=== PATIENT | male | born 1990 | race Caucasian/White ===

== ENCOUNTER 2021-02-13 17:43 | Emergency (ER) | payer BC, SELFPAY ==
--- NOTE | 2021-02-13 18:19 | RAD REPORT ---
EXAM DESCRIPTION: RAD - Chest Single View - 02/13/2021 6:10 pm CLINICAL HISTORY: dizziness Chest pain. COMPARISON: No comparisons FINDINGS: Portable technique limits examination quality. The lungs are grossly clear. The heart is normal in size. No displaced fractures. IMPRESSION: No acute intrathoracic process suspected.
[2021-02-13] MEDS ORDERED: FAMOTIDINE 20 MG/2 ML VIAL IV ONE (18:31)
[2021-02-13] MEDS ORDERED: NA CHLORIDE 0.9% 1,000 ML ONE (18:31)
[2021-02-13] MEDS ORDERED: MECLIZINE HCL 12.5 MG TAB ONE (18:31)
[2021-02-13] MEDS ORDERED: ONDANSETRON 4 MG/2 ML VIAL ONE (18:32)
--- NOTE | 2021-02-13 18:46 | RAD REPORT ---
EXAM DESCRIPTION: CT - Head Brain Wo Cont - 02/13/2021 6:22 pm CLINICAL HISTORY: HEADACHE Headache, drowsiness COMPARISON: No comparisons TECHNIQUE: All CT scans are performed using dose optimization technique as appropriate and may inclu de automated exposure control or mA/KV adjustment according to patient size. FINDINGS: No intracranial hemorrhage, hydrocephalus or extra-axial fluid collection.3 cm left tempor al arachnoid cyst.No areas of brain edema or evidence of midline shift. The paranasal sinuses and mastoids are clear. The calvarium is intact. IMPRESSION: No acute intracranial abnormality.
[2021-02-13 18:47] LABS: Protime INR 1.12
[2021-02-13 18:49] LABS: Absolute Lymphocytes (CBC) 2.1 K/uL (0.7-4.9); Basophils % 0.2 % (0-1.3); Hematocrit 44.7 % (39.6-49.0); Lymphocytes % 18.6 % (15.3-44.8); MPV 7.4 fL (7.6-11.3); RBC Red Blood Cell Count 5.25 M/uL (4.33-5.43)
[2021-02-13 18:56] LABS: ALT/SGPT 44 U/L (12-78); AST/SGOT 21 U/L (15-37); Albumin 4.5 g/dL (3.4-5.0); Alkaline Phosphatase 59 U/L (45-117); BUN Blood Urea Nitrogen 15 mg/dL (7-18); Bicarbonate 23 mmol/L (21-32); Bilirubin Direct 0.2 mg/dL (0-0.2); Bilirubin Total 0.7 mg/dL (0.2-1.0); Glucose Level 98 mg/dL (74-106); Potassium 3.4 mmol/L (3.5-5.1); Protein, Total 8.2 g/dL (6.4-8.2); Sodium Level 141 mmol/L (136-145); Troponin (Emerg Dept Use Only) < 0.02 ng/mL (0.0-0.045)
--- NOTE | 2021-02-13 19:50 | EDPHYS ---
Physician Documentation [facility] Name: Vargas Payne Age: 30 yrs Sex: Male : 1990 Arrival Date: 02/13/2021 Time: 17:46 Bed 16 Private MD: ED Physician Ag Martinez HPI: 02/13 18:00 This 30 yrs old Male presents to ER via EMS with complaints of Dizziness. cp 18:00 The patient presents with dizziness, feeling faint, generalized weakness. Onset: The cp symptoms/episode began/occurred today. 18:00 Context: occurred at work, just prior to the episode the patient experienced no cp apparent symptoms. Associated signs and symptoms: Pertinent negatives: abdominal pain, blurred vision, chest pain, focal weakness, headache, palpitations, syncope. Severity of symptoms: in the emergency department the symptoms have improved markedly. Patient's baseline: Neuro: alert and fully oriented, Motor: no deficits, Ambulation: walks without assistance, Speech: normal. Historical: - PMHx: 17:47 Diabetes mellitus; es2 - Immunization history:: Adult Immunizations Client reports receiving the 2nd dose of the Covid vaccine. - Social history:: Smoking status: Patient denies any tobacco usage or history of. ROS: 18:00 Constitutional: Negative for body aches, chills, fever. cp 18:00 Eyes: Negative for injury, pain, redness, and discharge. cp 18:00 ENT: Negative for ear pain, sore throat, difficulty swallowing, difficulty handling secretions. 18:00 Cardiovascular: Negative for chest pain, palpitations. 18:00 Respiratory: Negative for cough, shortness of breath, wheezing. 18:00 Abdomen/GI: Positive for nausea and vomiting, Negative for abdominal pain, diarrhea, constipation. 18:00 Neuro: Positive for dizziness, Negative for altered mental status, headache, numbness, syncope, weakness. 18:00 All other systems are negative. Exam: 18:00 ECG was reviewed by the Attending Physician. cp 18:05 Constitutional: The patient appears in no acute distress, alert, awake, cp non-diaphoretic, non-toxic, well developed, well nourished. 18:05 Head/Face: Normocephalic, atraumatic. cp 18:05 Eyes: Periorbital structures: appear normal, Pupils: equal, round, and reactive to light and accomodation, Extraocular movements: intact throughout, Conjunctiva: normal, no exudate, no injection, Sclera: no appreciated abnormality, Lids and lashes: appear normal, bilaterally. 18:05 ENT: External ear(s): are unremarkable, Ear canal(s): are normal, clear, TM's: dullness, bilaterally, Nose: is normal, Mouth: Lips: moist, Oral mucosa: pink and intact, moist, Posterior pharynx: Airway: no evidence of obstruction, patent, swelling, is not appreciated, erythema, is not appreciated, exudate, is not appreciated. 18:05 Neck: ROM/movement: is normal, is supple, without pain, no range of motions limitations, no nuchal rigidity. 18:05 Chest/axilla: Inspection: normal, Palpation: is normal, no crepitus, no tenderness. 18:05 Cardiovascular: Rate: normal, Rhythm: regular, Heart sounds: murmur, not appreciated. 18:05 Respiratory: the patient does not display signs of respiratory distress, Respirations: normal, no use of accessory muscles, no retractions, labored breathing, is not present, Breath sounds: are clear throughout, no decreased breath sounds. 18:05 Abdomen/GI: Inspection: abdomen appears normal, Palpation: abdomen is soft and non-tender, in all quadrants. 18:05 Neuro: Orientation: to person, place \T\ time. Mentation: is normal, Cerebellar function: is grossly normal, Motor: moves all fours, strength is normal, Sensation: is normal. Vital Signs: 17:46 BP 113 / 70; Pulse 66; Resp 17; Temp 97.5; Pulse Ox 100% on R/A; es2 MDM: 17:53 Patient medically screened. cp 18:00 Differential diagnosis: cardiac arrhythmia, hypovolemia, idiopathic dizziness, vertigo. cp 19:48 Data reviewed: vital signs, nurses notes, lab test result(s), EKG, radiologic studies, cp CT scan, plain films. 19:48 Test interpretation: by ED physician or midlevel provider: ECG, plain radiologic cp studies. Counseling: I had a detailed discussion with the patient and/or guardian regarding: the historical points, exam findings, and any diagnostic results supporting the discharge/admit diagnosis, lab results, radiology results, to return to the emergency department if symptoms worsen or persist or if there are any questions or concerns that arise at home. Response to treatment: the patient's symptoms have markedly improved after treatment, patient is well hydrated. VSS. Patient reports symptoms markedly improved. Will discharge to home for continued monitoring. 02/13 17:52 Order name: Basic Metabolic Panel; Complete Time: 19:00 cp 02/13 19:00 Interpretation: Normal except: K 3.4; CL 109. cp 02/13 17:52 Order name: CBC with Diff; Complete Time: 18:57 cp 02/13 18:57 Interpretation: Normal except: WBC 11.20; MPV 7.4; NICOLE% 74.7; NEUT A 8.4. cp 02/13 17:52 Order name: LFT's; Complete Time: 19:00 cp 02/13 19:00 Interpretation: Normal except: GLOB 3.7. cp 02/13 17:52 Order name: Magnesium; Complete Time: 19:00 cp 02/13 17:52 Order name: PT-INR; Complete Time: 18:57 cp 02/13 19:00 Interpretation: Abnormal: PT 12.9. cp 02/13 17:52 Order name: Troponin (emerg Dept Use Only); Complete Time: 19:00 cp 02/13 17:52 Order name: XRAY Chest (1 view); Complete Time: 18:57 cp 02/13 17:52 Order name: EKG; Complete Time: 17:53 cp 02/13 17:52 Order name: Cardiac monitoring; Complete Time: 18:18 cp 02/13 18:00 Order name: CT Head Brain wo Cont; Complete Time: 18:57 cp 02/13 17:52 Order name: EKG - Nurse/Tech; Complete Time: 18:03 cp 02/13 17:52 Order name: IV Saline Lock; Complete Time: 18:18 cp 02/13 17:52 Order name: Labs collected and sent; Complete Time: 18:18 cp 02/13 17:52 Order name: O2 Per Protocol; Complete Time: 18:59 cp 02/13 17:52 Order name: O2 Sat Monitoring; Complete Time: 18:59 cp EC:00 Rate is 55 beats/min. Rhythm is regular. SD interval is normal. QRS interval is normal. cp QT interval is normal. T waves are Inverted in lead aVR. Interpreted by me. Reviewed by me. Administered Medications: 18:17 Drug: Meclizine 25 mg Route: PO; es2 18:33 Follow up: Response: No adverse reaction es2 18:17 Drug: Zofran (Ondansetron) 4 mg Route: IVP; Site: right antecubital; es2 18:33 Follow up: Response: No adverse reaction es2 18:17 Drug: Pepcid (famotidine) 20 mg Route: IVP; Site: right antecubital; es2 18:33 Follow up: Response: No adverse reaction es2 18:33 Drug: NS 0.9% 1000 ml Route: IV; Rate: 1 bolus; Site: right antecubital; es2 Disposition: 02/14 07:04 Co-signature as Attending Physician, Ag Martinez MD I agree with the assessment and rn plan of care. Attestation: The patient's history, exam findings, diagnostics, and a summary of any interventions or procedures was reviewed in detail with Frank MCINTYRE. Disposition Summary: 02/13/21 19:49 Discharge Ordered Location: Home cp Problem: new cp Symptoms: have improved cp Condition: Stable cp Diagnosis - Dizziness and giddiness cp - Nausea with vomiting, unspecified cp Followup: cp - With: Keo Escobar MD - When: 2 - 3 days - Reason: Recheck today's complaints Discharge Instructions: - Discharge Summary Sheet cp - Dizziness cp - Nausea and Vomiting, Adult cp Forms: - Medication Reconciliation Form cp - Thank You Letter cp - Antibiotic Education cp - Prescription Opioid Use cp Prescriptions: - Meclizine 25 mg Oral Tablet - take 1 tablet by ORAL route every 8 hours As needed; 30 tablet; Refills: 0, cp Product Selection Permitted - Zofran 4 mg Oral Tablet - take 1 tablet by ORAL route every 12 hours As needed; 20 tablet; Refills: 0, cp Product Selection Permitted Signatures: Dispatcher [employer] EDMS Ag Martinez MD MD rn Page, Corey, PA PA cp Smith, Elizabeth, RN RN es2 Corrections: (The following items were deleted from the chart) 02/13 18:57 18:57 Normal except: WBC 11.20; MPV 7.4; NICOLE% 74.7. cp cp
--- NOTE | 2021-02-13 19:50 | ER ---
Nurse's Notes [facility] Name: Vargas Payne Age: 30 yrs Sex: Male : 1990 Arrival Date: 02/13/2021 Time: 17:46 Bed 16 Private MD: Diagnosis: Dizziness and giddiness;Nausea with vomiting, unspecified Presentation: 02/13 17:46 Chief complaint: EMS states: vertigo. Coronavirus screen: Client denies travel out of es2 the [place] in the last 14 days. Ebola Screen: Patient negative for fever greater than or equal to 101.5 degrees Fahrenheit, and additional compatible Ebola Virus Disease symptoms Patient denies exposure to infectious person. Patient denies travel to an Ebola-affected area in the 21 days before illness onset. No symptoms or risks identified at this time. Initial Sepsis Screen: Does the patient meet any 2 criteria? No. Patient's initial sepsis screen is negative. Does the patient have a suspected source of infection? No. Patient's initial sepsis screen is negative. Risk Assessment: Do you want to hurt yourself or someone else? Patient reports no desire to harm self or others. Onset of symptoms was February 13, 2021. 17:46 Method Of Arrival: EMS: [facility] es2 17:46 Acuity: ANAMIKA 3 es2 Triage Assessment: 17:49 General: Appears ill, well developed, well nourished, Behavior is calm, cooperative, es2 appropriate for age. Pain: Denies pain. EENT: No signs and/or symptoms were reported regarding the EENT system. Neuro: Level of Consciousness is awake, alert, obeys commands, Oriented to person, place, time, situation, Appropriate for age Speech is normal. Neuro: Reports dizziness, weakness. Cardiovascular: Capillary refill < 3 seconds Patient's skin is warm and dry. Respiratory: Airway is patent Trachea midline Respiratory effort is even, Respiratory pattern is regular. GI: No signs and/or symptoms were reported involving the gastrointestinal system. : No signs and/or symptoms were reported regarding the genitourinary system. Derm: No signs and/or symptoms reported regarding the dermatologic system. Musculoskeletal: No signs and/or symptoms reported regarding the musculoskeletal system. Historical: - PMHx: 17:47 Diabetes mellitus; es2 - Immunization history:: Adult Immunizations Client reports receiving the 2nd dose of the Covid vaccine. - Social history:: Smoking status: Patient denies any tobacco usage or history of. Screenin:46 Abuse screen: Denies threats or abuse. Nutritional screening: No deficits noted. tw2 Tuberculosis screening: No symptoms or risk factors identified. Fall Risk None identified. Assessment: 17:50 General: Appears ill, well developed, well nourished, Behavior is calm, cooperative, es2 appropriate for age. Pain: Denies pain. Neuro: Level of Consciousness is awake, alert, obeys commands, Oriented to person, place, time, situation, Appropriate for age Speech is normal, Reports dizziness, weakness. Cardiovascular: Capillary refill < 3 seconds Patient's skin is warm and dry. Respiratory: Airway is patent Trachea midline Respiratory effort is even, Respiratory pattern is regular. GI: No signs and/or symptoms were reported involving the gastrointestinal system. : No signs and/or symptoms were reported regarding the genitourinary system. EENT: No signs and/or symptoms were reported regarding the EENT system. Derm: No signs and/or symptoms reported regarding the dermatologic system. Musculoskeletal: No signs and/or symptoms reported regarding the musculoskeletal system. Vital Signs: 17:46 BP 113 / 70; Pulse 66; Resp 17; Temp 97.5; Pulse Ox 100% on R/A; es2 ED Course: 17:46 Patient arrived in ED. tw2 17:46 Iliana Nunez, RN is Primary Nurse. es2 17:46 Arm band placed on. tw2 17:46 Bed in low position. Call light in reach. Side rails up X2. Pulse ox on. NIBP on. tw2 17:47 Triage completed. es2 17:51 Frank Mcclure PA is PHCP. cp 17:51 Ag Martinez MD is Attending Physician. cp 17:51 No provider procedures requiring assistance completed. es2 18:06 Missed attempt(s): 20 gauge in left antecubital area. vg1 18:10 XRAY Chest (1 view) In Process Unspecified. EDMS 18:18 Basic Metabolic Panel Sent. es2 18:18 CBC with Diff Sent. es2 18:18 Troponin (emerg Dept Use Only) Sent. es2 18:18 PT-INR Sent. es2 18:18 Magnesium Sent. es2 18:18 LFT's Sent. es2 18:18 Inserted saline lock: 20 gauge in right antecubital area, using aseptic technique. es2 Blood collected. 18:24 CT Head Brain wo Cont In Process Unspecified. EDMS 19:49 Keo Escobar MD is Referral Physician. cp Administered Medications: 18:17 Drug: Meclizine 25 mg Route: PO; es2 18:33 Follow up: Response: No adverse reaction es2 18:17 Drug: Zofran (Ondansetron) 4 mg Route: IVP; Site: right antecubital; es2 18:33 Follow up: Response: No adverse reaction es2 18:17 Drug: Pepcid (famotidine) 20 mg Route: IVP; Site: right antecubital; es2 18:33 Follow up: Response: No adverse reaction es2 18:33 Drug: NS 0.9% 1000 ml Route: IV; Rate: 1 bolus; Site: right antecubital; es2 Outcome: 19:49 Discharge ordered by . cp 21:22 Patient left the ED. em Signatures: Dispatcher [employer] EDMS Doni Brumfield, RN RN em Frank Mcclure PA PA cp Bailey Bacon, RN RN tw2 Shonda Ramírez RN RN vg1 Iliana Nunez RN RN es2
[2021-02-13 21:28] VITALS: BP 113/70; TEMP 97.5; O2SAT 100
== END 2021-02-13 21:22 | disposition home or self-care (01) ==
LOC: ER 17:43 → EDSEX 17:43 → ER 21:22
DX: R42 Dizziness and giddiness (principal); R11.2 Nausea with vomiting, unspecified
CPT/HCPCS: 93005; 85025; 80048; 36415; 83735; 85610; 80076; 84484; 70450; 71045; 96375; 96374; 99284; J7030; J2405